=== PATIENT | female | born 1985 | race Caucasian/White ===

== ENCOUNTER 2018-03-15 17:44 | Emergency (ER) | payer OTHER ==
[~2018-03-15] VITALS: Ht 160 cm; Wt 68.5 kg
[2018-03-15 18:00] VITALS: TEMP 98.6
[2018-03-15] MEDS ORDERED: BUSPAR5 MG PO (18:14)
[2018-03-15] MEDS ORDERED: PLAQUENIL 200M200 MG PO (18:15)
[2018-03-15] MEDS ORDERED: LUVOX100 MG PO (18:15)
[2018-03-15] MEDS ORDERED: NUVIGIL150 MG (18:16)
[2018-03-15] MEDS ORDERED: WELLBUTRIN XL150 MG PO (18:17)
[2018-03-15] MEDS ORDERED: ZOFRAN ODT4 MG PO (18:58)
[2018-03-15 19:03] VITALS: BP 118/60; PULSE 90
== END 2018-03-15 19:04 | disposition home or self-care (01) ==
LOC: COL.ER 17:44
DX: S06.0X0A Concussion without loss of consciousness, initial encounter (principal); F32.9 Major depressive disorder, single episode, unspecified; F41.9 Anxiety disorder, unspecified; W22.8XXA Striking against or struck by other objects, initial encounter; Y92.89 Other specified places as the place of occurrence of the external cause

== ENCOUNTER → 2018-12-21 | Outpatient (CLI) | payer OTHER | LOC: COL.RAD 08:13 | DX: S09.90XA Unspecified injury of head, initial encounter (principal) ==

== ENCOUNTER 2022-07-11 11:55 | Emergency (ER) | payer OTHER ==
[~2022-07-11] VITALS: Ht 160 cm; Wt 66.4 kg
[~2022-07-11 11:55] MED LIST: BUSPAR5 MG PO; LUVOX100 MG PO; NUVIGIL150 MG; PLAQUENIL 200M200 MG PO; WELLBUTRIN XL150 MG PO; ZOFRAN ODT4 MG PO
[2022-07-11 12:46] VITALS: TEMP 98.3
[2022-07-11 13:47] VITALS: BP 120/62; PULSE 96
== END 2022-07-11 13:48 | disposition home or self-care (01) ==
LOC: COL.ER 11:55
DX: S09.90XA Unspecified injury of head, initial encounter (principal); Z28.310 Unvaccinated for COVID-19; W20.8XXA Other cause of strike by thrown, projected or falling object, initial encounter; Y92.59 Other trade areas as the place of occurrence of the external cause; Y99.0 Civilian activity done for income or pay